=== PATIENT | female | born 1960 | race Caucasian/White ===

== ENCOUNTER 2018-06-21 10:37 | Observation (INO) | payer MEDICARE ==
--- NOTE | 2018-06-21 10:55 | ER Document Report ---
ED Neuro Symptoms/Deficit - General Stated Complaint: POSSIBLE STROKE Time Seen by Provider: 06/21/18 10:49 Information source: Patient, Emergency Med Personnel Notes: Patient is a 58-year-old female who presents today around 1 hour prior to ar rival of some slurred speech and some right arm and leg weakness. EMS states that it improved spontaneously but then once again reoccurred. Patient has past medical history as recorded including a diagnosis ischemic stroke with the paperwork in hand from [facility] 1 week ago. Patient was discharged appears on the with prescriptions written for Plavix, atorvastatin, and aspirin. Patient denies any headache, chest pain, palpitations, abdominal pain, or other symptomatology. - HPI Patient complains to provider of: Other - See above Onset: Other - See above Awoke with symptoms: No Symptoms are: Intermittent episodes Duration: Better Quality of pain: Other - See above Severity: Moderate Pain Level: Denies Was STROKE ALERT Called: Yes Baseline Cognitive: Alert, oriented X 3 Baseline Gait: Walks w/o assistance New weakness: RUE Altered sensation: RLE Decreased ability to stand/walk: Weak Impaired speech/swallowing: Unable Associated symptoms: Other - See above Similar symptoms previously: Yes Recently seen / treated by doctor: Yes - Related Data Allergies/Adverse Reactions: Penicillins Allergy (Verified 06/21/18 11:15) Past Medical History - Social History Smoking Status: Unknown if Ever Smoked Family History: Reviewed & Not Pertinent Review of Systems - Review of Systems Constitutional: denies: Fever EENT: denies: Eye discharge, Nose discharge Cardiovascular: denies: Chest pain, Palpitations Respiratory: denies: Short of breath Gastrointestinal: denies: Vomiting Genitourinary: denies: Dysuria Musculoskeletal: denies: Back pain, Leg swelling Skin: Other - no hives. denies: Rash Neurological/Psychological: Other - no slurred speech -: Yes All other systems reviewed and negative Physical Exam - Vital signs Vitals: Pulse Resp BP Pulse Ox 66 18 161/103 H 96 06/21/18 10:52 06/21/18 10:52 06/21/18 10:52 06/21/18 10:52 Notes: Reviewed vital signs and nursing note as charted by RN. CONSTITUTIONAL: Alert and oriented and responds appropriately to questions. Well-appearing; well-nourished HEAD: Normocephalic; atraumatic EYES: PERRL; full extraocular range of motion with no nystagmus noted ENT: Normal nose; no rhinorrhea; moist mucous membranes; pharynx without lesions noted NECK: Supple without meningismus; non-tender; no carotid bruit; no cervical lymphadenopathy, no masses CARD: Regular rate and rhythm; no murmurs; symmetric distal pulses RESP: Normal chest excursion without splinting or tachypnea; breath sounds clear and equal bilaterally ABD/GI: Normal bowel sounds; non-distended; soft, non-tender; no palpable organomegaly or masses BACK: The back appears normal and is non-tender to palpation EXT: Normal ROM in all joints; non-tender to palpation; no edema SKIN: No acute lesions noted NEURO: CN 2-12 intact; 5/5 bilateral upper and lower extremity strength with sensation intact to light touch. NIH score of a 2 on initial examination for some right limb ataxia as well as slightly slurred speech PSYCH: The patient's mood and manner are appropriate. Grooming and personal hygiene are appropriate. Course - Re-evaluation Re-evalutation: Given the history and physical examination, with the patient having had an ex ischemic stroke by paperwork from [facility] 1 week ago, the patient is not a TPA candidate. NIH score is 2 and the patient is VAN negative. Therefore, the patient is excluded from being a TPA candidate at this time. Given the minimal symptomatology, I do not believe that the patient requires CTA of the head and neck at this time as the VAN score is negative with no apparent weakness. 06/21/18 10:58 No change in examination. The radiologist has called me stating he sees no acute stroke. EKG shows a heart of 61, normal sinus rhythm, normal axis, no ST elevation or depression 06/21/18 11:59 Patient's neurologic symptoms have completely resolved. Patient denies any pain at this time. It appears the patient also was provided a loop monitor for heart monitoring for possibility of intermittent atrial fibrillation. Patient has already taken her aspirin and Plavix today. Patient will be admitted to the hospitalist service for evaluation this evening and we will order the outpatient management discharge summary from [facility]. - Vital Signs Vital signs: Temp Pulse Resp BP Pulse Ox 65 20 148/88 H 97 06/21/18 10:52 06/21/18 10:52 06/21/18 10:52 06/21/18 10:52 - Laboratory Result Diagrams: 06/21/18 10:25 06/21/18 10:25 Laboratory results interpreted by me: 06/21/18 06/21/18 10:25 10:25 WBC 12.1 H Absolute Neutrophils 8.5 H BUN 23 H Discharge - Discharge Clinical Impression: TIA (transient ischemic attack) Condition: Good Disposition: ADMITTED OBSERVATION Admitting Provider: Hospitalist Unit Admitted: Telemetry
[2018-06-21 10:58] LABS: INTERNATIONAL RATION (INR) 0.89; PROTHROMBIN TIME 12.5 SEC (11.4-15.4)
[2018-06-21 10:59] LABS: ABSOLUTE BASOPHILS # (AUTO) 0.1 10^3/uL (0.0-0.2); ABSOLUTE EOSINOPHILS # (AUTO) 0.1 10^3/uL (0.0-0.6); ABSOLUTE LYMPHOCYTES (AUTO) 2.1 10^3/uL (0.5-4.7); ABSOLUTE MONOCYTES (AUTO) 1.3 10^3/uL (0.1-1.4); ABSOLUTE NEUT (AUTO) 8.5 10^3/uL (1.7-8.2); BASOPHILS % (AUTO) 0.5 % (0-2); EOSINOPHILS % (AUTO) 0.8 % (0-6); HEMATOCRIT 39.7 % (36.0-47.0); HEMOGLOBIN 13.4 g/dL (12.0-15.5); LYMPHOCYTES % (AUTO) 17.6 % (13-45); MEAN CORPUSCULAR HEMOGLOBIN 31.4 pg (27.0-33.4); MEAN CORPUSCULAR HGB CONC 33.8 g/dL (32.0-36.0); MEAN CORPUSCULAR VOLUME 93 fl (80-97); PARTIAL THROMBOPLASTIN TIME 35.4 SEC (23.5-35.8); PLATELET COUNT 412 10^3/uL (150-450); RED BLOOD COUNT 4.28 10^6/uL (3.72-5.28); RED CELL DISTRIBUTION WIDTH 13.6 % (11.5-14.0); SEGMENTED NEUTROPHILS % (AUTO) 70.1 % (42-78); TOTAL CELLS COUNTED % (AUTO) 100 %; WHITE BLOOD COUNT 12.1 10^3/uL (4.0-10.5)
--- NOTE | 2018-06-21 11:03 | RADIOLOGY REPORT (SQ) ---
EXAM DESCRIPTION: CT HEAD WITHOUT COMPLETED DATE/TIME: 06/21/2018 10:45 am REASON FOR STUDY: STROKE ALERT; SLURRED SPEECH AND RT SIDED WEAKNESS COMPARISON: None. TECHNIQUE: Axial images acquired through the brain without intravenous contrast. Images reviewed wi th bone, brain and subdural windows. Additional sagittal and coronal reconstructions were generated. Images stored on PACS. All CT scanners at this facility use dose modulation, iterative reconstruction, and/or weight based d osing when appropriate to reduce radiation dose to as low as reasonably achievable (ALARA). [facility]: Dose Right [facility]: CareDose [facility]: Dose Right [facility]: Teradose 4D [facility]: 2Checkout RADIATION DOSE: 990 mGy cm LIMITATIONS: None. FINDINGS: VENTRICLES: Normal size and contour. CEREBRUM: No masses. No hemorrhage. No midline shift. No evidence for acute infarction. Normal gra y/white matter differentiation. No areas of low density in the white matter. CEREBELLUM: No masses. No hemorrhage. No alteration of density. No evidence for acute infarction. EXTRAAXIAL SPACES: No fluid collections. No masses. ORBITS AND GLOBE: No intra- or extraconal masses. Normal contour of globe without masses. CALVARIUM: No fracture. PARANASAL SINUSES: Small air-fluid level in the left maxillary sinus. SOFT TISSUES: No mass or hematoma. OTHER: No other significant finding. IMPRESSION: 1. No CT evidence of acute stroke or hemorrhage. 2. Small nonspecific air-fluid level in the left maxillary sinus. Correlate for evidence of acute s inusitis or trauma. Findings discussed with Dr. Puri by telephone at 10:53 AM, 06/21/2018 EVIDENCE OF ACUTE STROKE: NO. COMMENT: Quality ID # [id number]: Final reports with documentation of one or more dose reduction techniques (e.g., Automated exposure control, adjustment of the mA and/or kV according to patient size, use of iterative reconstruction technique) TECHNICAL DOCUMENTATION: JOB ID: [id number] [employer]- All Rights Reserved Reading location - IP/workstation name: [email or web address]
--- NOTE | 2018-06-21 11:13 | RADIOLOGY REPORT (SQ) ---
EXAM DESCRIPTION: CHEST SINGLE VIEW COMPLETED DATE/TIME: 06/21/2018 10:45 am REASON FOR STUDY: STROKE ALERT COMPARISON: None. EXAM PARAMETERS: NUMBER OF VIEWS: One view. TECHNIQUE: Single frontal radiographic view of the chest acquired. RADIATION DOSE: NA LIMITATIONS: None. FINDINGS: LUNGS AND PLEURA: No opacities, masses or pneumothorax. No pleural effusion. MEDIASTINUM AND HILAR STRUCTURES: No masses. Contour normal. HEART AND VASCULAR STRUCTURES: Heart normal in size. Normal vasculature. BONES: No acute findings. HARDWARE: Cardiac loop monitor. Right mastectomy. OTHER: No other significant finding. IMPRESSION: NO ACUTE RADIOGRAPHIC FINDING IN THE CHEST. TECHNICAL DOCUMENTATION: JOB ID: [id number] [employer]- All Rights Reserved Reading location - IP/workstation name: [email or web address]
[2018-06-21 11:23] LABS: ANION GAP 9 (5-19); BLOOD UREA NITROGEN 23 mg/dL (7-20); CALCIUM 9.6 mg/dL (8.4-10.2); CARBON DIOXIDE 27 mmol/L (22-30); CHLORIDE 107 mmol/L (98-107); GLUCOSE 100 mg/dL (75-110); SODIUM 142.7 mmol/L (137-145)
--- NOTE | 2018-06-21 14:31 | PDOC H&P ---
History of Present Illness Admission Date/PCP: 06/21/18 12:26 History of Present Illness: YOKASTA BELLE is a 58 year old female was taking a trip several days ago up to [place] to see family, when she stopped in [facility]. They were staying at a hotel and she said one morning she was going to get some coffee and she found she could not use her right hand and her asked her what was wrong and she knew what she wanted to say but she could not get the words out, only garbled speech. She went to the hospital at [facility] and was worked up for stroke. Her said that she had a CT of the head, MRI of the brain, and these tests indicated that she had indeed had a stroke, and the said that they were told that she had a blockage in a blood vessel in her brain. She was put on aspirin, Plavix, and Lipitor. They also apparently did a CLINT and put in an implantable loop recorder. She has not yet received the fish receiver and transmitter unit in the mail that will be needed for monitoring the recorder. Her plan was to follow-up with her 's forging machine operator here locally. Her symptoms had completely resolved and she was back to baseline by the time she l eft [facility]. Instead of going on to [place] they came back home. Apparently she and her this morning had been having a very intense philosophical discussion when she decided to go for a walk. She says she got about 10 minutes into the walk and noticed that her foot was dragging a little bit. She managed to get back to her house but says that the foot dragging got worse and she began to have trouble using her right arm again and also had trouble with her speech again according to her . Overall this episode lasted about 2 hours total and her symptoms have resolved spontaneously. She is currently asymptomatic but obviously troubled by this episode. Past Medical History Neurological Medical History: Reports: Ischemic CVA Social History Lives with: Spouse/Significant other Smoking Status: Former Smoker Frequency of Alcohol Use: Occasional Hx Recreational Drug Use: No Family History Family History: Reviewed & Not Pertinent Parental Family History Reviewed: Yes - Noncontributory Children Family History Reviewed: Yes - Noncontributory Sibling(s) Family History Reviewed.: Yes - Noncontributory Medication/Allergy Home Medications: Aspirin [Adult Aspirin] 81 mg PO DAILY 06/21/18 Atorvastatin Calcium [Lipitor 40 mg Tablet] 40 mg PO QHS 06/21/18 Clopidogrel Bisulfate [Plavix 75 mg Tablet] 75 mg PO DAILY 06/21/18 Allergies/Adverse Reactions: Penicillins Allergy (Verified 06/21/18 11:15) Review of Systems All systems: reviewed and no additional remarkable complaints except as stated - 10 point review of systems was conducted with the patient and was negative except as noted above Physical Exam Vital Signs: Temp Pulse Resp BP Pulse Ox 70 20 147/81 H 97 06/21/18 13:21 06/21/18 13:21 06/21/18 13:21 06/21/18 13:21 Intake & Output 06/20/18 06/21/18 06/22/18 06:59 06:59 06:59 Weight 47.627 kg General appearance: PRESENT: no acute distress, cooperative Head exam: PRESENT: atraumatic, normocephalic Eye exam: PRESENT: EOMI, PERRLA. ABSENT: conjunctival injection, nystagmus, scleral icterus Ear exam: PRESENT: normal external ear exam Mouth exam: PRESENT: moist, neck supple Throat exam: ABSENT: post pharyngeal erythema Neck exam: PRESENT: full ROM. ABSENT: carotid bruit, JVD, lymphadenopathy, meningismus, tenderness, thyromegaly Respiratory exam: PRESENT: clear to auscultation davy, symmetrical, unlabored. ABSENT: accessory muscle use, crackles, rhonchi, tachypnea, wheezes Cardiovascular exam: PRESENT: RRR, +S1, +S2 Vascular exam: PRESENT: normal capillary refill GI/Abdominal exam: PRESENT: normal bowel sounds, soft. ABSENT: distended, guarding, rebound, tenderness Extremities exam: ABSENT: clubbing, pedal edema Musculoskeletal exam: PRESENT: ambulatory, normal inspection. ABSENT: deformity Neurological exam: PRESENT: alert, awake, oriented to person, oriented to place, oriented to time, oriented to situation, CN II-XII grossly intact, normal gait. ABSENT: motor sensory deficit Psychiatric exam: PRESENT: appropriate affect, normal mood Skin exam: PRESENT: dry, warm Results Laboratory Results: 06/21/18 10:25 06/21/18 10:25 06/21/18 06/21/18 10:25 10:25 WBC 12.1 H RBC 4.28 Hgb 13.4 Hct 39.7 MCV 93 MCH 31.4 MCHC 33.8 RDW 13.6 Plt Count 412 Seg Neutrophils % 70.1 Lymphocytes % 17.6 Monocytes % 11.0 Eosinophils % 0.8 Basophils % 0.5 Absolute Neutrophils 8.5 H Absolute Lymphocytes 2.1 Absolute Monocytes 1.3 Absolute Eosinophils 0.1 Absolute Basophils 0.1 Sodium 142.7 Potassium 4.0 Chloride 107 Carbon Dioxide 27 Anion Gap 9 BUN 23 H Creatinine 0.56 Est GFR ( Amer) > 60 Est GFR (Non-Af Amer) > 60 Glucose 100 Calcium 9.6 06/21/18 10:25 Troponin I < 0.012 Impressions: Chest X-Ray 06/21/18 00:00 IMPRESSION: NO ACUTE RADIOGRAPHIC FINDING IN THE CHEST. Head CT 06/21/18 00:00 IMPRESSION: 1. No CT evidence of acute stroke or hemorrhage. 2. Small nonspecific air-fluid level in the left maxillary sinus. Correlate for evidence of acute sinusitis or trauma. Findings discussed with Dr. Puri by telephone at 10:53 AM, 06/21/2018 EVIDENCE OF ACUTE STROKE: NO. Assessment & Plan - Diagnosis (1) TIA (transient ischemic attack) Is this a current diagnosis for this admission?: Yes Plan: She is already on aspirin and statin which will be continued. Her blood pressure was well within the normal range never came to see her, with a systolic in the 120s and diastolic in the 80s. She already has a loop recorder in place. Because she had a very extensive workup for this exact same problem just a few days before she came here, including what they are telling me is a positive result on MRI for stroke, I am going to try to get all the records from [facility] to review so that were not repeating tests unnecessarily. We will bring her in for neuro checks. We will have her evaluated by physical therapy and occupational therapy. She is displaying no trouble with speech and she is been swallowing without difficulty. - Time Time Spent: 50 to 70 Minutes
--- NOTE | 2018-06-21 15:06 | EKG REPORT ---
SEVERITY:- ABNORMAL ECG - SINUS RHYTHM PROBABLE LEFT ATRIAL ABNORMALITY CONSIDER ANTEROSEPTAL INFARCT : Confirmed by: David Hines 21-Jun-2018 15:06:14
[2018-06-21] MEDS ORDERED: ATORVASTATIN CALCIUM 40 MG TABLET PO SCH (22:00)
[2018-06-22 06:57] LABS: CHOLESTEROL 156.24 mg/dL (0-200); TRIGLYCERIDES 112 mg/dL (<150)
[2018-06-22 07:08] LABS: DIRECT LDL 54 mg/dL (<100)
[2018-06-22] MEDS ORDERED: ASPIRIN 81 MG TABLET, ENT COATED PO SCH (10:00)
[2018-06-22] MEDS ORDERED: CLOPIDOGREL BISULFATE 75 MG TABLET PO SCH (10:00)
[2018-06-22 14:00] VITALS: BP 113/68
--- NOTE | 2018-06-22 17:02 | PDOC DISCHARGE SUMMARY ---
General - Admit/Disc Date/PCP Admission Date/Primary Care Provider: 06/21/18 12:26 Discharge Date: 06/22/18 - Discharge Diagnosis (1) TIA (transient ischemic attack) Is this a current diagnosis for this admission?: Yes Summary: She had a return of her symptoms that lasted for about 2 hours that completely resolved by the time I saw her in the ER. She apparently had a stroke a few days before and has been medically optimized. She apparently had a very stressful interaction with her new right before the attack. She will continue her aspirin, Plavix, statin, and she will get established with a box feeder to follow-up on the loop recorder that was implanted at her previous hospitalization. - Additional Information Discharge Diet: Cardiac Discharge Activity: Activity As Tolerated Home Medications: Aspirin [Adult Aspirin] 81 mg PO DAILY 06/21/18 Atorvastatin Calcium [Lipitor 40 mg Tablet] 40 mg PO QHS 06/21/18 Clopidogrel Bisulfate [Plavix 75 mg Tablet] 75 mg PO DAILY 06/21/18 History of Present Illness History of Present Illness: YOKASTA BELLE is a 58 year old female was taking a trip several days ago up to [place] to see family, when she stopped in [facility]. They were staying at a hotel and she said one morning she was going to get some coffee and she found she could not use her right hand and her asked her what was wrong and she knew what she wanted to say but she could not get the words out, only garbled speech. She went to the hospital at [facility] and was worked up for stroke. Her said that she had a CT of the head, MRI of the brain, and these tests indicated that she had indeed had a stroke, and the said that they were told that she had a blockage in a blood vessel in her brain. She was put on aspirin, Plavix, and Lipitor. They also apparently did a CLINT and put in an implantable loop recorder. She has not yet received the zinc miner and transmitter unit in the mail that will be needed for monitoring the recorder. Her plan was to follow-up with her 's box feeder here locally. Her symptoms had completely resolved and she was back to baseline by the time she left [facility]. Instead of going on to [place] they came back home. Apparently she and her this morning had been having a very intense philosophical discussion when she decided to go for a walk. She says she got about 10 minutes into the walk and noticed that her foot was dragging a little bit. She managed to get back to her house but says that the foot dragging got worse and she began to have trouble using her right arm again and also had trouble with her speech again according to her . Overall this episode lasted about 2 hours total and her symptoms have resolved spontaneously. She is currently asymptomatic but obviously troubled by this episode. Hospital Course Hospital Course: She had had a stroke a few days before she came in, a small left-sided stroke on MRI done at [facility], and they had medically optimized her and place a loop recorder there and she was planning on follow-up with a box feeder here. She apparently had a very stressful interaction with her new the day she was admitted here, had a recurrence of her symptoms that lasted about 2 hours and then resolved. Physical therapy went to evaluate her but she declined because she said she did not feel like she had any deficits and that she could walk and use her hands without any difficulties. She showed no trouble chewing or swall owing or with her speech. Her plan now is to return with her signs to her previous home in [place] and she will get established with a primary care provider and her box feeder there to follow-up on the loop recorder that was placed at [facility]. Her labs and examination were reassuring and she was discharged home in good condition. Physical Exam Vital Signs: Temp Pulse Resp BP Pulse Ox 97.8 F 74 20 113/68 95 06/22/18 13:55 06/22/18 13:55 06/22/18 13:55 06/22/18 13:55 06/22/18 13:55 Intake & Output 06/21/18 06/22/18 06/23/18 06:59 06:59 06:59 Intake Total 686 Balance 686 Weight 45.6 kg General appearance: PRESENT: no acute distress, cooperative, thin Respiratory exam: PRESENT: clear to auscultation davy, symmetrical, unlabored. ABSENT: crackles, rhonchi, tachypnea, wheezes Cardiovascular exam: PRESENT: RRR, +S1, +S2 Vascular exam: PRESENT: normal capillary refill GI/Abdominal exam: PRESENT: normal bowel sounds, soft. ABSENT: distended, guard ing, rebound, tenderness Extremities exam: ABSENT: clubbing, pedal edema Musculoskeletal exam: PRESENT: ambulatory, normal inspection. ABSENT: deformity Neurological exam: PRESENT: alert, awake, oriented to person, oriented to place, oriented to time, oriented to situation, normal gait. ABSENT: motor sensory deficit Psychiatric exam: PRESENT: appropriate affect, normal mood Skin exam: PRESENT: dry, warm Results Laboratory Results: 06/21/18 10:25 06/21/18 10:25 06/22/18 05:37 Triglycerides 112 Cholesterol 156.24 LDL Cholesterol Direct 54 VLDL Cholesterol 22.0 HDL Cholesterol 89 06/21/18 10:25 Troponin I < 0.012 Impressions: Chest X-Ray 06/21/18 00:00 IMPRESSION: NO ACUTE RADIOGRAPHIC FINDING IN THE CHEST. Head CT 06/21/18 00:00 IMPRESSION: 1. No CT evidence of acute stroke or hemorrhage. 2. Small nonspecific air-fluid level in the left maxillary sinus. Correlate for evidence of acute sinusitis or trauma. Findings discussed with Dr. Puri by telephone at 10:53 AM, 06/21/2018 EVIDENCE OF ACUTE STROKE: NO. Qualifiers - * PATIENT BEING DISCHARGED WITH ANY OF THE FOLLOWING DIAGNOSIS: No
== END 2018-06-22 14:19 | disposition home or self-care (01) ==
LOC: ER 10:37 → EH 12:26 → INTOOBSV 12:26 → 3S 17:34
PROVIDERS: ADMIT Internal Medicine; ATTEND Internal Medicine
DX: G45.9 Transient cerebral ischemic attack, unspecified (principal); Z86.73 Personal history of transient ischemic attack (TIA), and cerebral infarction without residual deficits; Z95.818 Presence of other cardiac implants and grafts; Z87.891 Personal history of nicotine dependence; R29.702 NIHSS score 2
CPT/HCPCS: 99285; 36415 ×2; 85025; 85610; 85730; 80048; 84484; 80061; 71045; 70450; 93005; 93010; G0378 ×3; A9270 ×2; J3490 ×2